=== PATIENT | male | born 1975 | race Caucasian/White ===

== ENCOUNTER → 2016-09-25 | Outpatient (CLI) | payer OTHER ==
--- NOTE | ~2016-09-25 | PUL ---
PATIENT'S NAME: MAX GARCIA [facility] AGE: 41 Y [address] ROOM: [place] [address] LOCATION: [facility] ADMIT DATE: 09/25/2016 Pulmonary DISCHARGE DATE: FAMILY PHYSICIAN: MAHNAZ KRAMER MD ATTENDING PHYSICIAN: MAHNAZ KRAMER NAME OF PROCEDURE: Sleep study DATE OF PROCEDURE: 09/25/16 TECH: REZA [place] TEST #: [facility] [place]# [id number] MEDICAL HISTORY: The patient is a 41-year-old overweight gentleman with a history of daytime sleepiness and snoring. He has a prior history of obstructive sleep apnea. This study was done to titrate PAP therapy. SLEEP STAGE SUMMARY: The patient was studied for 494 minutes of which he slept 406 minutes. He fell asleep in 6 minutes and slept for 82% of the night. Sleep architecture revealed mild declines in slow wave and REM sleep. RESPIRATORY SUMMARY: Oxygen saturations ranged from 90-96%. CPAP was initiated at 16 cm and titrated to 18 cm with good control of the respiratory events. EKG SUMMARY: No dysrhythmias. LIMB MOVEMENT SUMMARY: No clinically relevant periodic limb movements. SUMMARY: Obstructive sleep apnea responsive to CPAP at 18 cm. PLAN: Suggest CPAP at 18cm. Patient will receive results from the ordering provider. MD FAMILIA CAGLE/ /[id number] dtt: 10/02/16 1455 , Karl Moran. dtd: 09/27/16 1536
== END | disposition disaster alternative care site (69) ==
LOC: GSLP 09-17 21:00
DX: G47.19 Other hypersomnia (principal); G47.33 Obstructive sleep apnea (adult) (pediatric); G47.00 Insomnia, unspecified; R53.83 Other fatigue; R06.83 Snoring; I10 Essential (primary) hypertension